=== PATIENT | female | born 1990 | race Caucasian/White ===

== ENCOUNTER 2018-03-04 21:21 | Emergency (ER) | payer MEDICAID ==
[~2018-03-04] VITALS: Ht 167.6 cm; Wt 51.3 kg
[2018-03-04 21:29] VITALS: BP 107/47
[2018-03-04] MEDS: NACL 0.9% 1,000 ML IV ONE (21:54)
[2018-03-05] MEDS: NACL 0.9% 1,000 ML IV ONE (01:11)
[2018-03-05] MEDS: LORazepam 1 MG TAB PO ONE (04:16)
[2018-03-05 04:32] VITALS: BP 98/51
== END 2018-03-05 04:32 | disposition home or self-care (01) ==
LOC: MED 21:21
DX: F41.9 Anxiety disorder, unspecified (principal); F20.9 Schizophrenia, unspecified; F10.129 Alcohol abuse with intoxication, unspecified
CPT/HCPCS: 81002; 81025; 99283; J7030